=== PATIENT | female | born 1955 | race Caucasian/White ===

== ENCOUNTER 2024-01-15 20:57 | Emergency (ER) | payer MEDICARE ==
[~2024-01-15] VITALS: Ht 162.6 cm; Wt 69.0 kg
[2024-01-15 21:10] VITALS: TEMP 98.5; O2SAT 98
[2024-01-15 23:38] VITALS: BP 143/90; PULSE 81; RESP 18
[2024-01-15] MEDS: IBUPROFEN 600MG TABLET PO ONE (23:38)
[2024-01-16] MEDS ORDERED: IBUP-2029 MT (02:34)
== END 2024-01-16 03:11 | disposition home or self-care (01) ==
LOC: ER 20:57
DX: S16.1XXA Strain of muscle, fascia and tendon at neck level, initial encounter (principal); M79.10 Myalgia, unspecified site; V49.9XXA Car occupant (driver) (passenger) injured in unspecified traffic accident, initial encounter; Y93.89 Activity, other specified; Y92.89 Other specified places as the place of occurrence of the external cause; Y99.8 Other external cause status
CPT/HCPCS: 71045; 99284